=== PATIENT | female | born 1970 | race Two or more races ===

== ENCOUNTER 2016-09-19 10:14 | Inpatient (IN) | payer MEDICAID ==
[~2016-09-19] VITALS: Ht 149.9 cm; Wt 62.9 kg
[2016-09-19] MEDS ORDERED: ARICEPT5 MG PO (10:49)
[2016-09-19 11:15] LABS: BASOPHIL % 0.5 % (0-2); PLATELET COUNT 336 x10^3mcL (130-400); RED CELL DISTRIBUTION WIDTH 13.6 % (11.5-14.5)
[2016-09-19 11:32] LABS: CALCIUM 8.9 mg/dL (8.5-10.1); CHLORIDE SERUM 106 mmol/L (98-107); CREATININE SERUM 0.6 mg/dL (0.6-1.0); GFR1 > 60 mL/min; GLUCOSE SERUM 149 mg/dL (74-106); POTASSIUM SERUM 4.1 mmol/L (3.5-5.1); SODIUM SERUM 140 mmol/L (136-145)
[2016-09-19 11:37] LABS: ALBUMIN 3.6 g/dL (3.4-5.0); ALKALINE PHOSPHATASE 71 U/L (46-116); ALT/SGPT 29 U/L (14-59); AST/SGOT 17 U/L (15-37); BILIRUBIN TOTAL 0.49 mg/dL (0.20-1.00); TOTAL PROTEIN, SERUM 7.9 g/dL (6.4-8.2)
[2016-09-19 13:03] LABS: MAGNESIUM 1.9 mg/dL (1.8-2.4)
[2016-09-19 13:14] LABS: T3 TOTAL 1.43 ng/mL
[2016-09-19 13:52] LABS: FREE T4 1.28 ng/dL (0.76-1.46); FREE THYROXINE INDEX 2.9 ug/dL (1.4-4.5); T4(THYROXINE) 10.9 ug/dL (4.7-13.3)
[2016-09-19 14:02] VITALS: BP 152/96
[2016-09-19 14:30] VITALS: BP 152/96
[2016-09-19 16:21] VITALS: BP 146/80
[2016-09-19 17:10] LABS: microscopic required? YES; urine erythrocyte 2+ (NEGATIVE)
[2016-09-19 17:28] LABS: AMPHETAMINE QUAL UR NONE DETECTED (NEG <=1000)
[2016-09-19 20:20] VITALS: BP 150/92
[2016-09-19 21:55] VITALS: BP 152/84
[2016-09-19 22:20] VITALS: BP 152/84
[2016-09-20] VITALS (12 sets, daily range): BP systolic 108–184; BP diastolic 68–123
[2016-09-20 06:25] LABS: CALCIUM 8.5 mg/dL (8.5-10.1); CARBON DIOXIDE 20.9 mmol/L (21-32); CHLORIDE SERUM 105 mmol/L (98-107); CREATININE SERUM 0.7 mg/dL (0.6-1.0); GFR1 > 60 mL/min; GLUCOSE SERUM 142 mg/dL (74-106); POTASSIUM SERUM 3.4 mmol/L (3.5-5.1); SODIUM SERUM 140 mmol/L (136-145)
[2016-09-20 06:33] LABS: BASOPHIL % 0.4 % (0-2); PLATELET COUNT 348 x10^3mcL (130-400); RED CELL DISTRIBUTION WIDTH 13.8 % (11.5-14.5)
[2016-09-21] VITALS (14 sets, daily range): BP systolic 82–229; BP diastolic 54–127; Ht 149.9 cm; Wt 62.9 kg
[2016-09-21 06:21] LABS: PLATELET COUNT 396 x10^3mcL (130-400); RED CELL DISTRIBUTION WIDTH 13.7 % (11.5-14.5)
[2016-09-21 06:31] LABS: CALCIUM 9.2 mg/dL (8.5-10.1); CHLORIDE SERUM 103 mmol/L (98-107); CREATININE SERUM 0.6 mg/dL (0.6-1.0); GFR1 > 60 mL/min; GLUCOSE SERUM 149 mg/dL (74-106); POTASSIUM SERUM 3.2 mmol/L (3.5-5.1); SODIUM SERUM 139 mmol/L (136-145)
[2016-09-21 08:58] LABS: BAND NEUTROPHIL 3 % (0-10); BASOPHIL 0 % (0-2); MONOCYTE 8 % (0-7); SEGMENTED NEUTROPHILS 79 % (37-75)
[2016-09-21 13:27] LABS: PLATELET COUNT 374 x10^3mcL (130-400); RED CELL DISTRIBUTION WIDTH 14.1 % (11.5-14.5)
[2016-09-21 14:09] LABS: BAND NEUTROPHIL 2 % (0-10); BASOPHIL 0 % (0-2); MONOCYTE 6 % (0-7); SEGMENTED NEUTROPHILS 84 % (37-75)
[2016-09-21 14:11] LABS: PLATELET MORPHOLOGY PLATELETS NORMAL; rbc morphology (normal/abnorm) ABNORMAL (NORMAL)
[2016-09-21 14:29] LABS: ALKALINE PHOSPHATASE 74 U/L (46-116); ALT/SGPT 26 U/L (14-59); AST/SGOT 34 U/L (15-37); BILIRUBIN TOTAL 0.9 mg/dL (0.20-1.00); CALCIUM 8.5 mg/dL (8.5-10.1); CARBON DIOXIDE 24.2 mmol/L (21-32); CHLORIDE SERUM 107 mmol/L (98-107); CREATININE SERUM 0.7 mg/dL (0.6-1.0); GFR1 > 60 mL/min; GLUCOSE SERUM 119 mg/dL (74-106); SODIUM SERUM 142 mmol/L (136-145); TOTAL PROTEIN, SERUM 7.7 g/dL (6.4-8.2)
[2016-09-21 14:33] LABS: ALBUMIN 3.3 g/dL (3.4-5.0)
[2016-09-21 14:34] LABS: POTASSIUM SERUM 2.9 mmol/L (3.5-5.1)
[2016-09-21 15:06] LABS: TOTAL PROTEIN CSF 37.6 mg/dL (15-45)
[2016-09-21 15:27] LABS: APPEARANCE CSF CLEAR; COLOR CSF COLORLESS
[2016-09-21 15:29] LABS: LYMPHOCYTE CSF 94 % (40-80); MONOCYTE CSF 2 %; RBC CSF 20 /cumm (0); WBC CSF 138 /cumm (0-5)
[2016-09-21 22:27] LABS: CALCIUM 8.3 mg/dL (8.5-10.1); CARBON DIOXIDE 26.5 mmol/L (21-32); CHLORIDE SERUM 109 mmol/L (98-107); CREATININE SERUM 0.6 mg/dL (0.6-1.0); GFR1 > 60 mL/min; GLUCOSE SERUM 141 mg/dL (74-106); SODIUM SERUM 141 mmol/L (136-145)
[2016-09-22] VITALS: BP 135/82
[2016-09-22 00:10] VITALS: BP 133/84
[2016-09-22 02:10] VITALS: BP 145/81
[2016-09-22 04:00] VITALS: BP 142/83
[2016-09-22 04:15] VITALS: BP 152/90
[2016-09-22 04:56] LABS: BASOPHIL % 0.1 % (0-2); PLATELET COUNT 326 x10^3mcL (130-400); RED CELL DISTRIBUTION WIDTH 14.2 % (11.5-14.5)
[2016-09-22 05:15] LABS: CALCIUM 8.2 mg/dL (8.5-10.1); CARBON DIOXIDE 24.8 mmol/L (21-32); CHLORIDE SERUM 108 mmol/L (98-107); CREATININE SERUM 0.5 mg/dL (0.6-1.0); GFR1 > 60 mL/min; GLUCOSE SERUM 151 mg/dL (74-106); MAGNESIUM 1.9 mg/dL (1.8-2.4); PHOSPHOROUS 2.1 mg/dL (2.5-4.9); POTASSIUM SERUM 3.5 mmol/L (3.5-5.1); SODIUM SERUM 140 mmol/L (136-145)
[2016-09-22] MEDS ORDERED: ARI5 NG (05:50)
[2016-09-22] MEDS ORDERED: IPRATROPIUM BROM3 M2 HHN (05:51)
[2016-09-22] MEDS ORDERED: METOPROLOL TART25 M1 NG (05:51)
[2016-09-22] MEDS ORDERED: LIPI10 NG (05:51)
[2016-09-22] MEDS ORDERED: ZES10 PO (05:51)
[2016-09-22] MEDS ORDERED: ULT50 PO (05:52)
[2016-09-22] MEDS ORDERED: PROT40I IV (05:52)
[2016-09-22] MEDS ORDERED: LAC NG (05:53)
[2016-09-22] MEDS ORDERED: MIDAZOLAM IV (05:58)
[2016-09-22] MEDS ORDERED: FENTANYL N IJ (06:00)
[2016-09-22] MEDS ORDERED: MOR2I IV (06:01)
[2016-09-22] MEDS ORDERED: LABETALOL20 MG/4 ML IV (06:02)
[2016-09-22] MEDS ORDERED: APR20I IV (06:02)
[2016-09-22] MEDS ORDERED: ZOS3PM IV (06:25)
[2016-09-22] MEDS ORDERED: [UNRECOGNIZED DRUG - OTHER] IV (06:27)
== END 2016-09-22 06:52 | disposition short-term general hospital (02) | DRG 49 ==
LOC: ED 10:14 → DU 12:13 → IC 09-21 09:23
PROVIDERS: Emergency Medicine; Family Medicine; ADMIT Family Medicine
PROC: 5A1935Z Respiratory Ventilation, Less than 24 Consecutive Hours (ICD-10-PCS; principal; 2016-09-21)
PROC: 0BH17EZ Insertion of Endotracheal Airway into Trachea, Via Natural or Artificial Opening (ICD-10-PCS; 2016-09-21)
PROC: 05HM33Z Insertion of Infusion Device into Right Internal Jugular Vein, Percutaneous Approach (ICD-10-PCS; 2016-09-21)
PROC: B543ZZA Ultrasonography of Right Jugular Veins, Guidance (ICD-10-PCS; 2016-09-21)
DX: G61.0 Guillain-Barre syndrome (principal); N17.0 Acute kidney failure with tubular necrosis; J96.01 Acute respiratory failure with hypoxia; I67.4 Hypertensive encephalopathy; N39.0 Urinary tract infection, site not specified; E83.39 Other disorders of phosphorus metabolism; I24.8 Other forms of acute ischemic heart disease; R47.81 Slurred speech; R73.03 Prediabetes; F41.9 Anxiety disorder, unspecified; F43.0 Acute stress reaction; E87.6 Hypokalemia; R31.9 Hematuria, unspecified; H53.2 Diplopia; Z68.28 Body mass index [BMI] 28.0-28.9, adult
CPT/HCPCS: 31500; 36600; 62272; 82962; 83880; 84439; 86788; 86789; 97110-GP; A4628; C9113; G0480; J0133; J0360; J0696; J1170; J1642; J1956; J2060; J2250; J2270; J2405; J2543; J2704; J3010; J3480; J3490; J7030; J7040; J7620; Q0092; Q9967

== ENCOUNTER 2016-10-31 20:10 | Emergency (ER) | payer MEDICAID ==
[~2016-10-31 20:10] MED LIST: APR20I IV; ARI5 NG; ARICEPT5 MG PO; FENTANYL N IJ; IPRATROPIUM BROM3 M2 HHN; LABETALOL20 MG/4 ML IV; LAC NG; LIPI10 NG; METOPROLOL TART25 M1 NG; MIDAZOLAM IV; MOR2I IV; PROT40I IV; ULT50 PO; ZES10 PO; ZOS3PM IV; [UNRECOGNIZED DRUG - OTHER] IV
[2016-10-31 23:35] VITALS: BP 110/69
== END 2016-10-31 23:36 | disposition home or self-care (01) ==
LOC: ED 20:10
DX: L30.8 Other specified dermatitis (principal); Z93.0 Tracheostomy status; Z86.73 Personal history of transient ischemic attack (TIA), and cerebral infarction without residual deficits

== ENCOUNTER 2019-05-19 21:22 | Emergency (ER) | payer SELFPAY ==
[~2019-05-19] VITALS: Ht 157.5 cm; Wt 67.2 kg
[2019-05-19 21:27] VITALS: Ht 157.5 cm; Wt 67.2 kg
[2019-05-19 21:49] LABS: BASOPHIL % 0.7 % (0-2); PLATELET COUNT 349 x10^3mcL (130-400); RED CELL DISTRIBUTION WIDTH 13.4 % (11.5-14.5)
[2019-05-19 22:13] LABS: CHLORIDE SERUM 102 mmol/L (98-107); POTASSIUM SERUM 3.5 mmol/L (3.5-5.1); SODIUM SERUM 139 mmol/L (136-145)
[2019-05-19 22:14] LABS: ALBUMIN 4.2 g/dL (3.4-5.0); ALKALINE PHOSPHATASE 127 U/L (46-116); ALT/SGPT 40 U/L (14-59); AST/SGOT 23 U/L (15-37); BILIRUBIN TOTAL 0.6 mg/dL (0.20-1.00); CALCIUM 9.7 mg/dL (8.5-10.1); CARBON DIOXIDE 27.4 mmol/L (21-32); CREATININE SERUM 0.6 mg/dL (0.6-1.0); GFR1 > 60 mL/min; GLUCOSE SERUM 111 mg/dL (74-106); TOTAL PROTEIN, SERUM 8.6 g/dL (6.4-8.2)
[2019-05-19 22:31] LABS: microscopic required? YES; urine erythrocyte 1+ (NEGATIVE)
[2019-05-20 00:52] VITALS: BP 108/74
== END 2019-05-20 00:52 | disposition home or self-care (01) ==
LOC: ED 21:22
PROVIDERS: Emergency Medicine
DX: R07.89 Other chest pain (principal); R09.1 Pleurisy; I10 Essential (primary) hypertension; Z86.73 Personal history of transient ischemic attack (TIA), and cerebral infarction without residual deficits
CPT/HCPCS: 85378; J1885